=== PATIENT | male | born 1965 | race Caucasian/White ===

== ENCOUNTER 2020-10-17 13:05 | Emergency (ER) | payer OTHER ==
[2020-10-17 13:25] VITALS: BP 137/85; PULSE 62; TEMP 98.4; BMI 28.8
[2020-10-17] MEDS ORDERED: SODIUM CHLORIDE 1,000 ML IV STA (13:50)
[2020-10-17] MEDS ORDERED: KETOROLAC TROMETHAMINE 30 MG/1 ML VIAL IVPUSH ONE (13:50)
[2020-10-17] MEDS ORDERED: KETOROLAC TROMETHAMINE 30 MG/1 ML VIAL ONE (14:30)
[2020-10-17 14:59] LABS: BASO % 0.5 % (0-2.0); EOS % 3.2 % (0-4.5); HEMATOCRIT 48.6 % (35.4-49); HEMOGLOBIN 16.6 GM/dL (11.7-16.9); LYMPH % 31.4 % (8-40); MCH 31.6 pg (25.7-33.7); MCHC 34.2 g/dl (32.0-35.9); MEAN CELL VOLUME 92.2 fl (80-96); MEAN PLT VOLUME 8.2 fl (7.5-11.1); MONO % 9.3 % (3.8-10.2); NEUT % 55.6 % (42.8-82.8); PLATELET COUNT 288 K/MM3 (134-434); RBC 5.28 M/mm3 (4.00-5.60); RDW 12.6 % (11.9-15.9)
[2020-10-17 15:10] LABS: EPI CELLS 0 /uL (0-25.1); HYALINE CASTS 0 /uL (0-3.1); URINE APPEARANCE CLEAR; URINE BACTERIA 0 /uL (0-1359); URINE BILIRUBIN NEGATIVE (NEGATIVE); URINE COLOR YELLOW; URINE GLUCOSE (UA) NEGATIVE (NEGATIVE); URINE KETONE NEGATIVE (NEGATIVE); URINE LEUK ESTERASE TRACE (NEGATIVE); URINE NITRITE NEGATIVE (NEGATIVE); URINE PROTEIN NEGATIVE (NEGATIVE); URINE RBC 7 /uL (0-23.9); URINE UROBILINOGEN 0.2 mg/dL (0.2-1.0); URINE WBC 1 /uL (0-25.8)
[2020-10-17 15:20] LABS: POTASSIUM 4.1 mmol/L (3.5-5.1)
[2020-10-17 15:22] LABS: CALCIUM 9.9 mg/dL (8.5-10.1)
[2020-10-17 15:23] LABS: BLOOD UREA NITROGEN 11.2 mg/dL (7-18)
[2020-10-17 15:27] LABS: BILIRUBIN,TOTAL 0.6 mg/dL (0.2-1); TOT PROT 7.9 g/dl (6.4-8.2)
== END 2020-10-17 18:07 | disposition home or self-care (01) ==
LOC: JER 13:05
PROC: 3E0333Z Introduction of Anti-inflammatory into Peripheral Vein, Percutaneous Approach (ICD-10-PCS; principal; 2020-10-17)
PROC: 3E0337Z Introduction of Electrolytic and Water Balance Substance into Peripheral Vein, Percutaneous Approach (ICD-10-PCS; 2020-10-17)
DX: K52.9 Noninfective gastroenteritis and colitis, unspecified (principal)
CPT/HCPCS: 36415; 74176-TC; 80053; 81003; 85025; 87086; 99285-25

== ENCOUNTER 2021-09-11 20:16 | Emergency (ER) | payer OTHER ==
[2021-09-11 20:19] VITALS: BP 150/96; PULSE 72; TEMP 97; BMI 29.9
[2021-09-11] MEDS ORDERED: DIPHTH,PERTUSS(ACELL),TET 0.5 ML DISP.SYRIN IM ONE ×2 (20:43→20:49)
== END 2021-09-11 21:08 | disposition home or self-care (01) ==
LOC: JERFT 20:16
PROC: 0HQFXZZ Repair Right Hand Skin, External Approach (ICD-10-PCS; principal; 2021-09-11)
PROC: 3E0234Z Introduction of Serum, Toxoid and Vaccine into Muscle, Percutaneous Approach (ICD-10-PCS; 2021-09-11)
DX: S61.214A Laceration without foreign body of right ring finger without damage to nail, initial encounter (principal); Y93.H9 Activity, other involving exterior property and land maintenance, building and construction; Y92.9 Unspecified place or not applicable
CPT/HCPCS: 12001-25; 90471; 90715; 99283-25

== ENCOUNTER 2021-11-14 14:41 | Emergency (ER) | payer OTHER ==
[2021-11-14 15:07] VITALS: BP 120/80; PULSE 108; TEMP 98.9; BMI 29.9
[2021-11-17 18:08] LABS: SARS-CoV-2 NAA Detected (Not Detected)
== END 2021-11-14 17:52 | disposition home or self-care (01) ==
LOC: JER 14:41
DX: R05.1 Acute cough (principal); M79.10 Myalgia, unspecified site; J06.9 Acute upper respiratory infection, unspecified
CPT/HCPCS: 87804; 87807; 99283-25; C9803; U0003; U0005

== ENCOUNTER 2023-03-03 08:39 | Emergency (ER) | payer OTHER ==
[2023-03-03 09:24] VITALS: RESP 18; BMI 31.6
[2023-03-03] MEDS ORDERED: ACETAMINOPHEN 500 MG TABLET (FP) PO ONE (09:29)
[2023-03-03 09:40] VITALS: BP 125/90; PULSE 82; TEMP 98.7
[2023-03-03] MEDS ORDERED: ACETAMINOPHEN 500 MG TABLET (FP) ONE (10:04)
[2023-03-03 10:38] LABS: THROAT:GRP A STREP DETECTED (NOTDETECTED)
== END 2023-03-03 11:05 | disposition home or self-care (01) ==
LOC: JERFT 08:39 → JER 08:39 → JERFT 11:05
DX: J02.0 Streptococcal pharyngitis (principal); R07.0 Pain in throat; R13.10 Dysphagia, unspecified; Z20.822 Contact with and (suspected) exposure to COVID-19
CPT/HCPCS: 0241U-QW; 87070; 87651; 99283-25

== ENCOUNTER 2023-03-25 08:45 | Emergency (ER) | payer OTHER ==
[2023-03-25 08:56] VITALS: BP 145/88; PULSE 72; RESP 16; TEMP 97.8; BMI 41.5
[2023-03-25] MEDS ORDERED: ACETAMINOPHEN 500 MG TABLET (FP) PO ONE (09:45)
[2023-03-25] MEDS ORDERED: ACETAMINOPHEN 500 MG TABLET (FP) ONE (09:50)
[2023-03-25] MEDS ORDERED: AMOX TR/POT CLAV 875MG/125MG TABLETS (FP) PO ONE (09:58)
[2023-03-25] MEDS ORDERED: AMOX TR/POT CLAV 875MG/125MG TABLETS (FP) ONE (10:05)
== END 2023-03-25 10:37 | disposition home or self-care (01) ==
LOC: JERFT 08:45
DX: R07.0 Pain in throat (principal); Z20.822 Contact with and (suspected) exposure to COVID-19
CPT/HCPCS: 0241U-QW; 87651; 99283-25

== ENCOUNTER 2024-04-23 09:02 | Emergency (ER) | payer OTHER ==
[2024-04-23 09:10] VITALS: BP 154/89; PULSE 71; RESP 18; TEMP 98; BMI 29.9
== END 2024-04-23 11:25 | disposition home or self-care (01) ==
LOC: JER 09:02
DX: S50.02XA Contusion of left elbow, initial encounter (principal); M79.18 Myalgia, other site; W10.9XXA Fall (on) (from) unspecified stairs and steps, initial encounter
CPT/HCPCS: 73070-TC-LT-FY; 99283-25